=== PATIENT | female | born 1955 | race Caucasian/White ===

== ENCOUNTER 2017-05-09 18:39 | Emergency (ER) | payer OTHER ==
[~2017-05-09] VITALS: Ht 156.2 cm; Wt 53.9 kg
[~2017-05-09 18:39] MED LIST: ASPIRIN PO; ASTA4CAP PO; DIAZ2TAB PO; ESOM40CA PO; FOLIC ACID PO; LEVOTHYROXINE SODIUM PO; MULTIVITAMIN PO; POTASSIUM CL PO; TRIA1CAP PO; VITAMIN D3 PO; VITMAIN B12 PO; [UNRECOGNIZED DRUG - OTHER] PO
[2017-05-09 18:42] VITALS: BP 126/69
[2017-05-09] MEDS ORDERED: LEVO75TA5 PO (19:19)
[2017-05-09] MEDS ORDERED: TRIA1CAP3 PO (19:19)
[2017-05-09] MEDS ORDERED: POTA10CA PO (19:19)
[2017-05-09] MEDS ORDERED: NYSTATIN (19:19)
== END 2017-05-09 20:31 | disposition home or self-care (01) ==
LOC: ED 20:25
DX: M79.1 Myalgia (principal); R79.9 Abnormal finding of blood chemistry, unspecified
CPT/HCPCS: 81003; 99283

== ENCOUNTER → 2017-09-10 | Outpatient (CLI) | payer OTHER ==
[~2017-09-10] MED LIST changes: +LEVO75TA5 PO; +NYSTATIN; +POTA10CA PO; +TRIA1CAP3 PO
== END ==
LOC: PETCFH 07:37
PROVIDERS: ATTEND Specialist
DX: Z02.9 Encounter for administrative examinations, unspecified (principal)

== ENCOUNTER → 2017-09-11 | Outpatient (CLI) | payer OTHER | END | disposition home or self-care (01) | LOC: PETCFH 07:34 | PROVIDERS: ATTEND Specialist | DX: C83.30 Diffuse large B-cell lymphoma, unspecified site (principal) | CPT/HCPCS: 78815; A9552 ==

== ENCOUNTER → 2017-10-30 | Outpatient (CLI) | payer OTHER ==
[~2017-10-30] MED LIST changes: +GADOBUTROL 7.5 MMOL/7.5 ML VIAL ONE
== END | disposition home or self-care (01) ==
LOC: CFH 07:12
PROVIDERS: ATTEND Neurological Surgery
DX: D32.0 Benign neoplasm of cerebral meninges (principal); M48.02 Spinal stenosis, cervical region; M47.892 Other spondylosis, cervical region
CPT/HCPCS: 70553; 72141; A9585

== ENCOUNTER 2018-07-26 05:47 | Emergency (ER) | payer OTHER ==
[~2018-07-26] VITALS: Ht 154.9 cm; Wt 52.0 kg
[~2018-07-26 05:47] MED LIST changes: -GADOBUTROL 7.5 MMOL/7.5 ML VIAL ONE
[2018-07-26] MEDS ORDERED: VALIUM (06:00)
[2018-07-26 06:30] VITALS: BP 132/77
[2018-07-26 06:32] LABS: BASOPHILS # (AUTO) 0.07 x10^3/uL (0-0.1); BASOPHILS % (AUTO) 1 % (0-1); EOSINOPHILS # (AUTO) 0.14 x10^3/uL (0-0.4); EOSINOPHILS % (AUTO) 2 % (1-7); LYMPHOCYTES # (AUTO) 1.65 x10^3/uL (1-3.4); LYMPHOCYTES % (AUTO) 25 % (22-44); MD NO; MEAN CORPUSCULAR HEMOGLOBIN 23.1 pg (27.0-34.8); MEAN CORPUSCULAR HGB CONC 32.1 g/dL (32.4-35.8); MEAN CORPUSCULAR VOLUME 71.9 fL (80-100); MEAN PLATELET VOLUME 7.5 fL (7.4-10.4); MONOCYTES # (AUTO) 0.18 x10^3/uL (0.2-0.8); MONOCYTES % (AUTO) 3 % (2-9); NEUTROPHILS # (AUTO) 4.48 x10^3/uL (1.8-6.8); NEUTROPHILS % (AUTO) 69 % (42-75); PLATELET COUNT 371 x10^3/uL (130-400); RED BLOOD COUNT 5.36 x10^6/uL (3.82-5.3)
[2018-07-26 06:36] LABS: INTERNATIONAL NORMALIZED RATIO 0.93 (0.93-1.1); PROTHROMBIN TIME 9.9 Seconds (9.6-11.5)
[2018-07-26 06:37] LABS: ALANINE AMINOTRANSFERASE 23 U/L (12-78); ALBUMIN 4.5 g/dL (3.4-5.0); ANION GAP 8 mmol/L (5-15); CALCIUM 9.5 mg/dL (8.5-10.1); CHLORIDE 102 mmol/L (98-107); CREATININE 1.15 mg/dL (0.55-1.02)
[2018-07-26 06:47] LABS: ALKALINE PHOSPHATASE 69 U/L (45-117); BILIRUBIN,TOTAL 0.3 mg/dL (0.2-1.0); TOTAL PROTEIN 8.3 g/dL (6.4-8.2)
== END 2018-07-26 08:03 | disposition home or self-care (01) ==
LOC: ED 08:00
DX: R00.2 Palpitations (principal); Z87.891 Personal history of nicotine dependence
CPT/HCPCS: 36415; 71045; 80053; 83615; 83735; 84443; 85025; 85610; 85730; 93005; 99284

== ENCOUNTER → 2018-07-31 | Outpatient (CLI) | payer OTHER ==
[~2018-07-31] MED LIST changes: +VALIUM
== END | disposition home or self-care (01) ==
LOC: CVU 09:41
PROVIDERS: ATTEND Internal Medicine Cardiovascular Disease
DX: I65.23 Occlusion and stenosis of bilateral carotid arteries (principal); I73.9 Peripheral vascular disease, unspecified; Z85.72 Personal history of non-Hodgkin lymphomas; Z92.21 Personal history of antineoplastic chemotherapy
CPT/HCPCS: 93880

== ENCOUNTER → 2018-09-16 | Outpatient (CLI) | payer OTHER | END | disposition home or self-care (01) | LOC: CFH 11:00 | PROVIDERS: ATTEND Registered Nurse Registered Nurse First Assistant | DX: M47.812 Spondylosis without myelopathy or radiculopathy, cervical region (principal); M48.02 Spinal stenosis, cervical region; M25.78 Osteophyte, vertebrae | CPT/HCPCS: 72141 ==

== ENCOUNTER 2019-06-01 12:35 | Outpatient (CLI) | payer OTHER, MEDICARE | END 2019-06-01 23:59 | disposition home or self-care (01) | LOC: CFH 12:35 | PROVIDERS: ATTEND Internal Medicine Cardiovascular Disease | DX: I25.89 Other forms of chronic ischemic heart disease (principal); I25.10 Atherosclerotic heart disease of native coronary artery without angina pectoris | CPT/HCPCS: 78452; 93017; A9502 ==

== ENCOUNTER 2019-06-04 09:07 | Observation (INO) | payer MEDICARE, OTHER ==
[~2019-06-04] VITALS: Ht 154.9 cm; Wt 51.1 kg
[2019-06-04 11:03] VITALS: BP 142/72
[2019-06-04] MEDS ORDERED: SODIUM BICARBONATE 8.4% 150 MEQ in DEXTROSE 5% 1,000 ML IV SCH (11:30)
[2019-06-04] MEDS ORDERED: KRIL1CAP22 PO (11:40)
[2019-06-04] MEDS ORDERED: ESOM40CA PO (11:40)
[2019-06-04] MEDS ORDERED: ASPI81TA45 PO (11:40)
[2019-06-04] MEDS ORDERED: LEVO75CA2 PO (11:40)
[2019-06-04] MEDS ORDERED: TRIA50CA PO (11:40)
[2019-06-04] MEDS ORDERED: POTA20TA14 PO (11:40)
[2019-06-04] MEDS ORDERED: ROSU10TA2 PO (11:40)
[2019-06-04] MEDS ORDERED: ONDA8TAB9 PO (11:40)
[2019-06-04] MEDS ORDERED: CHOL200074 PO (11:40)
[2019-06-04] MEDS ORDERED: DIAZ2TAB PO (11:40)
[2019-06-04] MEDS ORDERED: ASCO100T5 PO (11:40)
[2019-06-04] MEDS ORDERED: LEVO100T5 PO (11:44)
[2019-06-04 11:48] LABS: ANION GAP 8 mmol/L (5-15); CALCIUM 9.4 mg/dL (8.5-10.1); CHLORIDE 105 mmol/L (98-107); CREATININE 0.91 mg/dL (0.55-1.02)
[2019-06-04 12:00] LABS: MEAN CORPUSCULAR HEMOGLOBIN 23.1 pg (27.0-34.8); MEAN CORPUSCULAR HGB CONC 31.6 g/dL (32.4-35.8); MEAN CORPUSCULAR VOLUME 73.1 fL (80-100); MEAN PLATELET VOLUME 7.6 fL (7.4-10.4); PLATELET COUNT 368 x10^3/uL (130-400); RED CELL DISTRIBUTION WIDTH 14.2 % (9.6-15.2)
[2019-06-04 12:01] LABS: MD YES
[2019-06-04 12:03] LABS: ANISOCYTOSIS 1+; EOS#(MANUAL) 0.17 x10^3/uL (0.0-0.4); EOS% (MANUAL) 3 % (1-7); LYMPH#(MANUAL) 1.68 x10^3/uL (1-3.4); LYMPHS% (MANUAL) 29 % (22-44); MICROCYTOSIS 1+; MONOS#(MANUAL) 0.12 x10^3/uL (0.3-2.7); MONOS% (MANUAL) 2 % (2-9); SEG#(MANUAL) 3.83 x10^3/uL (1.8-6.8); SEGS% (MANUAL) 66 % (42-75)
[2019-06-04 12:04] LABS: <PLATELET ESTIMATE> ADEQUATE; <PLT MORPHOLOGY> NORMAL PLT MORPH; HYPOCHROMIA 1+; OVALOCYTES 1+
[2019-06-04] MEDS ORDERED: TICAGRELOR 90 MG TABLET ONE (12:08)
[2019-06-04] MEDS ORDERED: MIDAZOLAM 1 MG/ML, 5ML ONE (12:08)
[2019-06-04] MEDS ORDERED: FENTANYL PF 100 MCG/2ML ONE (12:08)
[2019-06-04] MEDS ORDERED: LIDOCAINE 2%, 20ML ONE (12:09)
[2019-06-04] MEDS ORDERED: HEPARIN 1,000 UNITS/ML, 10ML ONE (12:09)
[2019-06-04] MEDS ORDERED: ONDANSETRON 2MG/ML, 2ML ONE (12:09)
[2019-06-04] MEDS ORDERED: VERAPAMIL 2.5 MG/ML, 2ML ONE (12:09)
[2019-06-04] MEDS ORDERED: BIVALIRUDIN 250 MG ONE (12:09)
[2019-06-04] MEDS ORDERED: methylPREDNISolone SOD SUCC 125 MG/2 ML ONE (12:10)
[2019-06-04] MEDS ORDERED: DIPHENHYDRAMINE 50 MG/ML, 1ML ONE (12:10)
[2019-06-04] MEDS ORDERED: PRASUGREL 10 MG TABLET ONE (13:22)
[2019-06-04] MEDS ORDERED: ONDANSETRON 2MG/ML, 2ML IVPush PRN (13:30)
[2019-06-04] MEDS ORDERED: ZOLPIDEM 5MG TABLET PO PRN (13:30)
[2019-06-04] MEDS: SODIUM CHLORIDE 0.9% 1,000 ML IV SCH ×2 (13:49→20:01)
[2019-06-04] MEDS: ACETAMINOPHEN 325 MG TABLET PO PRN ×2 (13:52→21:37)
[2019-06-04] MEDS ORDERED: BIVALIRUDIN 250 MG in SODIUM CHLORIDE 0.9% 50 ML IV SCH (13:57)
[2019-06-04] MEDS: DIAZEPAM 2 MG TABLET PO SCH ×2 (17:10→21:37)
[2019-06-04] MEDS: PANTOPROZOLE 40MG TABLET PO SCH (17:48)
[2019-06-04] MEDS: OMEPRAZOLE 20 MG CAPSULE.DR PO SCH (17:48)
[2019-06-04] MEDS ORDERED: POTASSIUM CHLORIDE 20 MEQ TAB.ER.PRT ONE ×2 (17:50→18:17)
[2019-06-04] MEDS: POTASSIUM CHLORIDE 20 MEQ TAB.ER.PRT PO SCH (18:20)
[2019-06-04] MEDS ORDERED: TRIAMTERENE-HCTZ 37.5/25 MG TABLET PO SCH (18:30)
[2019-06-04 19:42] LABS: TROPONIN I 0.244 ng/mL (0.000-0.045)
[2019-06-04] MEDS ORDERED: DIAZEPAM 5 MG TABLET ONE (21:33)
[2019-06-04 21:41] VITALS: BP 127/71
[2019-06-05 01:11] VITALS: BP 100/61
[2019-06-05 04:56] LABS: ANION GAP 6 mmol/L (5-15); CALCIUM 9.3 mg/dL (8.5-10.1); CHLORIDE 108 mmol/L (98-107); CREATININE 0.91 mg/dL (0.55-1.02)
[2019-06-05] MEDS: SODIUM CHLORIDE 0.9% 1,000 ML IV SCH (05:18)
[2019-06-05] MEDS ORDERED: LEVOTHYROXINE 75 MCG TABLET ONE (06:12)
[2019-06-05 07:25] VITALS: BP 116/67
[2019-06-05] MEDS: PANTOPROZOLE 40MG TABLET PO SCH (08:14)
[2019-06-05] MEDS: OMEPRAZOLE 20 MG CAPSULE.DR PO SCH (08:14)
[2019-06-05] MEDS: POTASSIUM CHLORIDE 20 MEQ TAB.ER.PRT PO SCH (08:14)
[2019-06-05] MEDS: DIAZEPAM 2 MG TABLET PO SCH (08:15)
[2019-06-05] MEDS ORDERED: PRAS10TA4 PO (08:49)
[2019-06-05] MEDS ORDERED: ROSU10TA2 PO (08:49)
[2019-06-05] MEDS ORDERED: PRASUGREL 10 MG TABLET PO SCH (09:00)
[2019-06-05] MEDS ORDERED: CHOLECALCIFEROL 1,000 UNIT TABLET PO SCH (09:00)
[2019-06-05] MEDS ORDERED: TRIAMTERENE-HCTZ 37.5/25 MG TABLET PO SCH (09:00)
[2019-06-05] MEDS ORDERED: LEVOTHYROXINE 75 MCG TABLET PO SCH (09:00)
[2019-06-05] MEDS ORDERED: ASCORBIC ACID 500 MG TABLET PO SCH (09:00)
[2019-06-05] MEDS ORDERED: ASPIRIN 81 MG TABLET EC PO SCH (09:00)
== END 2019-06-05 10:50 | disposition home or self-care (01) ==
LOC: CACL 09:07 → ORIP 13:18 → 5SO 13:37 → DCLOUNGE 06-05 10:36
PROVIDERS: ADMIT Internal Medicine Cardiovascular Disease; ATTEND Internal Medicine Cardiovascular Disease
DX: I25.110 Atherosclerotic heart disease of native coronary artery with unstable angina pectoris (principal); E78.2 Mixed hyperlipidemia; I73.9 Peripheral vascular disease, unspecified; C85.80 Other specified types of non-Hodgkin lymphoma, unspecified site; R93.1 Abnormal findings on diagnostic imaging of heart and coronary circulation; Z79.82 Long term (current) use of aspirin
CPT/HCPCS: 36415; 80048; 84484; 85025; 93005; 93458; 93571; 99156; 99157; C1725; C1769; C1874; C1887; C1894; C9600; G0378; J0583; J1200; J1644; J2250; J2405; J2930; J3010; J3490; J7030; Q9967

== ENCOUNTER → 2019-09-15 | Outpatient (CLI) | payer MEDICARE, OTHER ==
[~2019-09-15] MED LIST changes: +ASCO100T5 PO; +ASPI81TA45 PO; +CHOL200074 PO; +KRIL1CAP22 PO; +LEVO100T5 PO; +LEVO75CA2 PO; +ONDA8TAB9 PO; +POTA20TA14 PO; +PRAS10TA4 PO; +ROSU10TA2 PO; +TRIA50CA PO
== END | disposition home or self-care (01) ==
LOC: PETCFH 09:47
PROVIDERS: ATTEND Internal Medicine Hematology & Oncology
DX: C83.30 Diffuse large B-cell lymphoma, unspecified site (principal)
CPT/HCPCS: 78815; A9552

== ENCOUNTER 2019-10-05 20:58 | Emergency (ER) | payer MEDICARE, OTHER ==
[2019-10-05 22:50] LABS: BASOPHILS # (AUTO) 0.03 x10^3/uL (0-0.1); BASOPHILS % (AUTO) 0 % (0-1); EOSINOPHILS # (AUTO) 0.31 x10^3/uL (0-0.4); EOSINOPHILS % (AUTO) 5 % (1-7); LYMPHOCYTES % (AUTO) 18 % (22-44); MD NO; MEAN CORPUSCULAR HGB CONC 31.8 g/dL (32.4-35.8); MEAN CORPUSCULAR VOLUME 72.3 fL (80-100); MEAN PLATELET VOLUME 7.4 fL (7.4-10.4); MONOCYTES # (AUTO) 0.38 x10^3/uL (0.2-0.8); MONOCYTES % (AUTO) 6 % (2-9); NEUTROPHILS # (AUTO) 4.59 x10^3/uL (1.8-6.8); NEUTROPHILS % (AUTO) 71 % (42-75); PLATELET COUNT 376 x10^3/uL (130-400); RED BLOOD COUNT 5.32 x10^6/uL (3.82-5.3); RED CELL DISTRIBUTION WIDTH 14.8 % (9.6-15.2)
[2019-10-05 22:51] LABS: ALANINE AMINOTRANSFERASE 22 U/L (12-78); ALBUMIN 4.2 g/dL (3.4-5.0); ANION GAP 7 mmol/L (5-15); CALCIUM 9.6 mg/dL (8.5-10.1); CHLORIDE 105 mmol/L (98-107); CREATININE 0.85 mg/dL (0.55-1.02)
[2019-10-05 22:56] LABS: ALKALINE PHOSPHATASE 74 U/L (45-117); BILIRUBIN,TOTAL 0.4 mg/dL (0.2-1.0); TROPONIN I < 0.015 ng/mL (0.000-0.045)
[2019-10-05] MEDS ORDERED: PLEASE ENTER HEIGHT AND WEIGHT MC SCH (23:45)
[2019-10-06] MEDS ORDERED: ONDANSETRON ODT 4 MG PO ONE
[2019-10-06] MEDS ORDERED: DIAZEPAM 5 MG TABLET PO ONE
[2019-10-06] MEDS ORDERED: ONDANSETRON ODT 4 MG ONE
[2019-10-06] MEDS ORDERED: DIAZEPAM 5 MG TABLET ONE (00:03)
[2019-10-06 00:33] VITALS: BP 126/55
[2019-10-06] MEDS ORDERED: DEXAMETHASONE 4 MG/ML, 1ML IM ONE (01:00)
[2019-10-06] MEDS ORDERED: DEXAMETHASONE 4 MG/ML, 5ML ONE (01:19)
== END 2019-10-06 01:32 | disposition home or self-care (01) ==
LOC: ED 10-06 01:00
DX: H81.03 Meniere's disease, bilateral (principal); R00.2 Palpitations; R07.9 Chest pain, unspecified; R94.31 Abnormal electrocardiogram [ECG] [EKG]; Z95.0 Presence of cardiac pacemaker; Z87.891 Personal history of nicotine dependence
CPT/HCPCS: 36415; 71045; 80053; 83735; 84443; 84484; 85025; 93005; 96372; 99285; J1100; Q0162

== ENCOUNTER 2019-10-16 00:41 | Inpatient (IN) | payer MEDICARE, OTHER ==
[~2019-10-16] VITALS: Ht 154.9 cm; Wt 49.8 kg
--- NOTE | 2019-10-16 01:11 | NUR ---
ASSESSMENT MADE. ERP AT BEDSIDE.
[2019-10-16] MEDS ORDERED: PROCHLORPERAZINE 5 MG/ML, 2ML IVPush ONE (01:30)
[2019-10-16] MEDS ORDERED: MECLIZINE CHEWABLE 25 MG TAB PO ONE (01:30)
[2019-10-16] MEDS ORDERED: DIAZEPAM 5 MG/ML, 2ML IV ONE (01:30)
[2019-10-16] MEDS ORDERED: KETOROLAC 30 MG/1 ML IVPush ONE (01:30)
[2019-10-16] MEDS ORDERED: PROCHLORPERAZINE 5 MG/ML, 2ML ONE (01:42)
[2019-10-16] MEDS ORDERED: MECLIZINE CHEWABLE 25 MG TAB ONE (01:42)
[2019-10-16] MEDS ORDERED: DIAZEPAM 5 MG/ML, 2ML ONE (01:42)
[2019-10-16] MEDS ORDERED: KETOROLAC 30 MG/1 ML ONE (01:42)
[2019-10-16] MEDS ORDERED: ACETAMINOPHEN 500 MG TABLET ONE (01:50)
[2019-10-16 01:53] LABS: BASOPHILS # (AUTO) 0.01 x10^3/uL (0-0.1); BASOPHILS % (AUTO) 0 % (0-1); EOSINOPHILS # (AUTO) 0.15 x10^3/uL (0-0.4); EOSINOPHILS % (AUTO) 2 % (1-7); LYMPHOCYTES # (AUTO) 1.64 x10^3/uL (1-3.4); LYMPHOCYTES % (AUTO) 21 % (22-44); MD NO; MEAN CORPUSCULAR HGB CONC 31.8 g/dL (32.4-35.8); MEAN CORPUSCULAR VOLUME 72.3 fL (80-100); MEAN PLATELET VOLUME 7.5 fL (7.4-10.4); MONOCYTES # (AUTO) 0.07 x10^3/uL (0.2-0.8); MONOCYTES % (AUTO) 1 % (2-9); NEUTROPHILS # (AUTO) 5.83 x10^3/uL (1.8-6.8); NEUTROPHILS % (AUTO) 76 % (42-75); PLATELET COUNT 377 x10^3/uL (130-400); RED BLOOD COUNT 5.26 x10^6/uL (3.82-5.3); RED CELL DISTRIBUTION WIDTH 14.8 % (9.6-15.2)
[2019-10-16] MEDS ORDERED: ACETAMINOPHEN 500 MG TABLET PO ONE (02:00)
[2019-10-16 02:01] LABS: ALBUMIN 4.2 g/dL (3.4-5.0); ANION GAP 8 mmol/L (5-15); CALCIUM 9.9 mg/dL (8.5-10.1); CHLORIDE 102 mmol/L (98-107)
--- NOTE | 2019-10-16 02:02 | NUR ---
BLOOD DRAW BY [employer]BILE [employer] EXAMINER. MEDICATED.
[2019-10-16 02:05] LABS: TROPONIN I < 0.015 ng/mL (0.000-0.045)
--- NOTE | 2019-10-16 02:55 | NUR ---
PATIENT SLEEPING, REPIRATION UNLABORED. WILL CONTINUE TO MONITOR.
[2019-10-16] MEDS ORDERED: NYST1000 PO (03:22)
[2019-10-16] MEDS ORDERED: CLOP75TA52 PO (03:22)
--- NOTE | 2019-10-16 04:49 | NUR ---
BED ASSIGNED. REPORT TO ZEKE LITTLEJOHN.
[2019-10-16 05:30] VITALS: BP 128/76
[2019-10-16 07:56] VITALS: BP 112/67
[2019-10-16] MEDS ORDERED: ASPIRIN 81 MG TABLET EC PO SCH (09:00)
[2019-10-16] MEDS ORDERED: POTASSIUM CHLORIDE 20 MEQ TAB.ER.PRT PO SCH (09:00)
[2019-10-16] MEDS ORDERED: POTASSIUM CHLORIDE 20 MEQ TAB.ER.PRT PO ONE (09:30)
[2019-10-16] MEDS ORDERED: ONDANSETRON 2MG/ML, 2ML IVPush PRN (09:30)
[2019-10-16] MEDS ORDERED: ACETAMINOPHEN 325 MG TABLET PO PRN (09:30)
[2019-10-16] MEDS ORDERED: ENOXAPARIN 40 MG/0.4 ML SQ SCH (09:30)
[2019-10-16] MEDS ORDERED: TRIAMTERENE-HCTZ 37.5/25 MG TABLET PO SCH (10:00)
[2019-10-16] MEDS ORDERED: CLOPIDOGREL 75 MG TABLET PO SCH (10:00)
[2019-10-16] MEDS ORDERED: SODIUM CHLORIDE 0.9% 1,000 ML IV SCH (10:00)
[2019-10-16] MEDS ORDERED: LEVOTHYROXINE 100 MCG TABLET PO SCH (10:00)
[2019-10-16] MEDS ORDERED: DIAZEPAM 5 MG/ML, 2ML IV SCH (10:30)
[2019-10-16] MEDS ORDERED: ATORVASTATIN 40 MG TABLET PO SCH (21:00)
== END 2019-10-16 13:30 | disposition home or self-care (01) | DRG 149 ==
LOC: ED 03:27 → EDIP 04:40 → 4NE 05:03 → DCLOUNGE 13:19
PROVIDERS: ADMIT Family Medicine; ATTEND Family Medicine
DX: H81.09 Meniere's disease, unspecified ear (principal); D32.9 Benign neoplasm of meninges, unspecified; E87.6 Hypokalemia; H69.81 Other specified disorders of Eustachian tube, right ear; I25.10 Atherosclerotic heart disease of native coronary artery without angina pectoris; K21.9 Gastro-esophageal reflux disease without esophagitis; E03.9 Hypothyroidism, unspecified; Z85.72 Personal history of non-Hodgkin lymphomas; Z87.891 Personal history of nicotine dependence; Z92.21 Personal history of antineoplastic chemotherapy; Z92.3 Personal history of irradiation; Z95.5 Presence of coronary angioplasty implant and graft; Z72.89 Other problems related to lifestyle; Z88.0 Allergy status to penicillin; Z86.718 Personal history of other venous thrombosis and embolism
CPT/HCPCS: 36415; 80048; 82040; 84484; 85025; 93005; 99285; J3360; J0780; J7030

== ENCOUNTER 2021-05-10 09:42 | Outpatient (CLI) | payer MEDICARE, OTHER ==
[~2021-05-10 09:42] MED LIST changes: +CLOP75TA52 PO; +NYST1000 PO
[2021-05-10] MEDS ORDERED: GADOTERATE 10 MMOL/20 ML VIAL ONE (10:00)
== END 2021-05-10 23:59 | disposition home or self-care (01) ==
LOC: RAD 09:42
PROVIDERS: ATTEND Internal Medicine Gastroenterology
DX: K62.89 Other specified diseases of anus and rectum (principal); K60.2 Anal fissure, unspecified; K90.0 Celiac disease; K64.1 Second degree hemorrhoids
CPT/HCPCS: 72197; A9575